=== PATIENT | male | born 1945 | race Caucasian/White ===

== ENCOUNTER 2017-01-31 10:53 | Day surgery (SDC) | payer MEDICARE, OTHER ==
[2017-01-24 16:10] LABS: BASOPHILS 0.4 %; BASOPHILS ABSOLUTE 0.04 10/3/uL (0.0-0.16); EOSINOPHILS 0.6 %; EOSINOPHILS ABSOLUTE 0.05 10/3/uL (0.0-0.53); HEMATOCRIT 44.3 % (40.0-51.0); HEMOGLOBIN 14.4 g/dL (13.6-17.8); IMMATURE GRANULOCYTES 0.3 %; IMMATURE GRANULOCYTES ABSOLUTE 0.03 10/3/uL (0.0-0.11); LYMPHOCYTES 10.7 %; LYMPHOCYTES ABSOLUTE 0.97 10/3/uL (0.67-4.30); MEAN CORPUS HGB CONC 32.5 g/dL (32.0-36.0); MEAN CORPUSCULAR HEMOGLOB 31.1 pg (26.0-34.0); MEAN PLATELET VOLUME 9.8 fL (9.2-13.0); MONOCYTES 8.2 %; MONOCYTES ABSOLUTE 0.74 10/3/uL (0.21-1.20); NEUTROPHILS 79.8 %; RBC DISTRIBUTION WIDTH 13.4 % (12.0-16.0); RED CELL COUNT 4.63 10/6/uL (4.7-6.1)
[2017-01-24 16:19] LABS: MANUAL DIFF NO %; MEAN CORPUSCULAR VOLUME 95.7 fL (80-100); PLATELET COUNT 257 10/3/uL (150-400)
[2017-01-24 16:27] LABS: A/G RATIO 1.1 (0.7-1.9); ALBUMIN 3.8 G/DL (3.5-5.0); ALKALINE PHOSPHATASE 89 U/L (45-117); BUN (BLOOD UREA NITROGEN) 16 MG/DL (6-23); CALCIUM, SERUM 9.6 MG/DL (8.5-10.4); CHLORIDE, SERUM 105 MMOL/L (96-112); CO2 (CARBON DIOXIDE) 31 MMOL/L (24-34); CREATININE 0.84 MG/DL (0.70-1.30); GFR AFRICAN AMERICAN 101 ML/MIN (>=60); GFR NON AFRICAN AMERICAN 87 ML/MIN (>=60); GLOBULIN 3.4 G/DL (2.5-4.1); GLUCOSE, SERUM 79 MG/DL (60-99); POTASSIUM, SERUM 5.7 MMOL/L (3.5-5.3); SGOT(AST) 23 U/L (5-40); SGPT(ALT) 22 U/L (5-65); SODIUM, SERUM 141 MMOL/L (135-148); TOTAL BILIRUBIN 0.4 MG/DL (0-1.2); TOTAL PROTEIN 7.2 G/DL (6.0-8.5)
--- NOTE | ~2017-01-31 | PREOPHP ---
PreOp History and Physical [address] [address] NAME: KARLOS VAIL : 43 STATUS : PRE [facility] [place] PAT#: [id number] AGE: 71 ADM/REG DATE : MR#: [id number] REPORT SERV DATE: 01/31/17 DICTATED BY: JOHANNA BURRIS III DATE: 01/16/17 REPORT STATUS : Draft TRANSCRIBED BY: MODNasir DATE: 01/16/17 HISTORY OF PRESENT ILLNESS: This 71-year-old male comes to the operating room for laparoscopic cholecystectomy, possible laparotomy, for symptomatic cholelithiasis and cholecystitis. The patient complains of intermittent episodes of epigastric abdominal pain. This is also associated with bloating and nausea after eating. The pain is worse after eating. The patient has gallstones and was felt to have symptomatic cholelithiasis and cholecystitis. He comes to the operating room now for laparoscopic cholecystectomy, possible laparotomy. PAST MEDICAL HISTORY: 1. History of cerebrovascular accident in the past. 2. History of prostate cancer. PAST SURGICAL HISTORY: Includes mitral valve repair, prostatectomy, and right inguinal hernia repair. FAMILY HISTORY: Remarkable for heart disease. SOCIAL HISTORY: No history of tobacco or alcohol use. ALLERGIES: NONE. MEDICATIONS: Metoprolol, Lipitor, aspirin, Plavix, Lupron, and vitamins. REVIEW OF SYSTEMS: The patient's 14-point review of systems is otherwise unremarkable. He does have a recurrent right inguinal hernia which is symptomatic. PHYSICAL EXAMINATION: GENERAL: This is a male, in no acute distress. He is alert and oriented x3. VITAL SIGNS: Blood pressure 145/77, temperature 97.9, pulse 80. HEENT: Unremarkable. Cranial nerves II through XII were normal. LUNGS: Clear. CARDIAC: Normal. ABDOMEN: Soft. Nontender. EXTREMITIES: Normal. LABORATORY DATA: Gallbladder ultrasound confirms gallstones. It should be noted that the patient has a moderate size right inguinal hernia which is reducible. ASSESSMENT: 1. A 71-year-old male with symptomatic cholelithiasis and cholecystitis. 2. History of cerebrovascular accident. 3. History of prostate cancer. 4. History of mitral valve repair. PreOp History and Physical [address] [address] NAME: KARLOS VAIL : 43 STATUS : PRE [facility]#: [id number] AGE: 71 ADM/REG DATE : MR#: [id number] REPORT SERV DATE: 01/31/17 DICTATED BY: JOHANNA BURRIS III DATE: 01/16/17 REPORT STATUS : Draft TRANSCRIBED BY: KALI DATE: 01/16/17 PLAN: The patient comes to the operating room now for laparoscopic cholecystectomy, possible laparotomy. This procedure, the risks, benefits, and alternatives, including but not limited to the risk for bleeding, infection, common bile duct injury, bile leak, retained common bile stone, enterotomy, or injury to any abdominal structure, the definite possible need for laparotomy, possible persistence of his symptoms unrelieved by surgery. The possibility of postoperative diarrhea or incisional hernia, and unforeseen complications including deep venous thrombosis, pulmonary embolus, myocardial infarction, stroke, pneumonia, and , have been fully and completely explained to the patient prior to surgery. The fact that this is a major operation with risk for major morbidity and mortality and no guarantee for relief of his symptoms has been explained to him. The expected length of recovery with both open and laparoscopic procedures has been explained. The fact that he will be at increased risk for thromboembolic complications while his Plavix is held perioperatively has been explained as well as increased risk of bleeding because of the use of this medication. The patient's questions have been answered. He understands the risks and agrees to surgery as planned. It should be noted that the patient has a right inguinal hernia which will be repaired at a separate setting. ALENA/KALI Johanna Burris III, M.D. / [id number]
--- NOTE | ~2017-01-31 | OP ---
Record Of Operation [facility] [address] [place]. [address] NAME: KARLOS VAIL : 43 STATUS : [facility]#: [id number] AGE: 71 ADM/REG DATE : 01/31/17 MR#: [id number] REPORT SERV DATE: 02/01/17 DICTATED BY: JOHANNA BURRIS III DATE: 02/01/17 REPORT STATUS : Draft TRANSCRIBED BY: MODNasir DATE: 02/01/17 DATE OF PROCEDURE: 01/31/2017 POSTOPERATIVE DIAGNOSIS: Symptomatic cholelithiasis and cholecystitis. POSTOPERATIVE DIAGNOSIS: Symptomatic cholelithiasis and cholecystitis. PROCEDURE: Laparoscopic cholecystectomy. SURGEON: Johanna Burris M.D. ANESTHESIA: General with intubation. COMPLICATIONS: None. ESTIMATED BLOOD LOSS: Less than 30 mL. SPECIMENS: Gallbladder. DRAINS: None. LAP AND SPONGE COUNT: Correct x3. BRIEF HISTORY: This 71-year-old male, presented with evidence for symptomatic cholelithiasis and cholecystitis. It was felt that laparoscopic cholecystectomy, possible laparotomy, was indicated. On this procedure, the risks, benefits, and alternatives, including but not limited to the risk for bleeding, infection, common bile duct injury, bile leak, retained common bile stone, enterotomy, or injury to any abdominal structure, the definite possible need for laparotomy, possible persistence of his symptoms unrelieved by surgery, positive postoperative diarrhea or incisional hernia, and unforeseen complications including deep venous thrombosis, pulmonary embolus, myocardial infarction, stroke, pneumonia, and , were fully and completely explained to the patient and family prior to surgery. The fact this was a major operation with risk for major morbidity and mortality and no guarantee for relief of his symptoms was explained to them. The expected length of recovery with open laparoscopic procedures was explained. The fact that he has increased risk for thromboembolic complications while his aspirin and Plavix were held perioperatively, as well as with increased risk of bleeding because of use of these medications was explained. The patient and family had questions, which were answered. They fully understood the risks and agreed to surgery as planned. FINDINGS: The patient had evidence for severely diseased the gallbladder. The gallbladder tovar were thickened and inflamed. The gallbladder was distended and enlarged, and there were adhesions between the gallbladder and omentum consistent with cholecystitis. The liver and remainder of the upper abdomen were otherwise unremarkable as far as we could determine through the laparoscope. Record Of Operation [facility] [address] [place]. [address] NAME: KARLOS VAIL : 43 STATUS : [facility] PAT#: [id number] AGE: 71 ADM/REG DATE : 01/31/17 MR#: [id number] REPORT SERV DATE: 02/01/17 DICTATED BY: JOHANNA BURRIS III DATE: 02/01/17 REPORT STATUS : Draft TRANSCRIBED BY: KALI DATE: 02/01/17 PROCEDURE IN DETAIL: After being appropriately identified and after discussing the risks of surgery with the patient and his family in the preoperative area, the patient was taken to the operating room and placed in the supine position on the operating room table. General anesthesia was administered. He was intubated without difficulty. The abdomen was prepped and draped sterilely in the usual fashion. After an appropriate "time-out" per [facility] standards, a small transverse incision was made below the umbilicus. The skin and fascia on either side was elevated with towel clips. A Veress needle was placed through the incision into the peritoneal cavity. Correct position of the needle in the peritoneal cavity was confirmed by the hanging drop test. The abdominal cavity was then insufflated to about 13 mmHg with carbon dioxide. Correct position of air in the peritoneal cavity was confirmed by palpation. The Veress needle was removed and replaced with 10-mm trocar. The laparoscope was placed through this. The patient was placed in the reverse Trendelenburg position and to his left. A second 10-mm trocar was placed just below the xiphoid process, to the right of the falciform ligament, under direct vision with the laparoscope. Two 5-mm trocars were placed along the right subcostal margin, one in the midaxillary line, the other in the midclavicular line. These were also placed under direct vision with the laparoscope. The upper abdomen was inspected. The gallbladder appeared to be chronically diseased. The gallbladder tovar were thickened and inflamed consistent chronic cholecystitis. The liver and remainder of the upper abdomen were otherwise unremarkable as far as we could determine through the laparoscope. The appropriate instruments were placed through the trocars. The gallbladder was grasped and the infundibulum of the gallbladder was retracted laterally and inferiorly so as to expose the triangle of Calot. Using careful sharp and blunt dissection, the cystic duct was carefully and meticulously defined proximally and distally. The cystic duct was fairly long. The junction of the cystic duct with the common bile duct was appreciated, but not skeletonized. The cystic artery was similarly defined proximally and distally. The fibrous and fatty tissue between these structures was divided so as to clearly identify the critical angle. Once these structures were clearly defined, the cystic duct was clipped using two clips on the common bile duct side and one on the gallbladder side, all placed as close to the gallbladder as possible, taking care not encroach upon or injure the common bile duct in any way. The cystic duct was then divided between these clips as close to the gallbladder as possible. We elected not to perform a cholangiogram because there was no preoperative or intraoperative evidence for biliary dilatation and because the patient's preoperative liver enzymes were normal and because his biliary anatomy was clearly defined. Again, the structure was not divided or clipped until the critical angle and triangle of Calot had been clearly identified. The cystic artery was then similarly clipped and divided as close to the gallbladder as possible. Using the spatula and the cautery, the gallbladder was carefully dissected from the liver bed. This went very well. Before the gallbladder was completely removed, the gallbladder bed and portal areas were irrigated numerous times with saline. The saline was aspirated dry. This process was repeated several times until hemostasis was meticulously and thoroughly assured in all areas. It was also assured that the clips in the portal areas were in good position and there was no extravasation of bile from any accessory bile duct. Once this was assured, the gallbladder was completely dissected away from the liver and placed in the Endopouch. The liver bed was elevated, irrigated, and inspected for meticulous and thorough hemostasis and for absence of any biliary extravasation and to be certain that the clips were in good position. Once this was assured, the gallbladder and Endopouch were brought out through the infraumbilical incision and placed in the laparoscope through the subxiphoid port. The Record Of Operation [facility] [address] [facility] [place]. [address] NAME: KARLOS VAIL : 43 STATUS : [facility]#: [id number] AGE: 71 ADM/REG DATE : 01/31/17 MR#: [id number] REPORT SERV DATE: 02/01/17 DICTATED BY: FATUMA PLATAJOHANNAT DATE: 02/01/17 REPORT STATUS : Draft TRANSCRIBED BY: KALI DATE: 02/01/17 fascia of the infraumbilical incision was closed with 0 Vicryl suture. The lateral two trocars were removed. These two lower trocar sites were inspected on the underside for hemostasis with the laparoscope. Once this was assured, the subxiphoid trocar was removed under direct vision with the laparoscope to assure hemostasis in this incision. The air was removed from the peritoneal cavity through this incision. The skin incisions were inspected for hemostasis, they were closed with running subcuticular 4-0 Monocryl stitches. They were injected with one-half percent Marcaine. Dressings were applied. Anesthesia was reversed and the patient was taken to the recovery room in stable condition. The patient tolerated the procedure well. His family was informed of the results of surgery. The patient was discharged later when he was stable, comfortable and tolerating liquids and able to void and ambulate. His family was advised that he should remain on a liquid diet today and advance this as tolerated to a regular diet tomorrow. He should keep wounds clean and dry for 48 hours and that he should not drive for 3-4 days after surgery or while using narcotics or Phenergan. They were advised that he should resume his usual medications. He was given a prescription for a narcotic and Phenergan, which he was advised to not take while driving. ADDENDUM: It should be noted that Surgicel was placed in the gallbladder bed to help with hemostasis. It also should be noted that the patient was advised that he should resume his Plavix and aspirin the day after surgery. ALENA/KALI Johanna Burris III, M.D. / [id number] CC: Humble Lambert III, M.D.
[~2017-01-31 10:53] MED LIST: ALLEGRA180 PO; ASA5GR PO; ASAB PO; BEN25 PO; CLARITD PO; CO Q-1050 MG PO; LIPITOR10 PO; PLAVIX PO; TOPXL25 PO
[2017-01-31 18:00] LABS: HEMOGLOBIN 13.4 g/dL (13.6-17.8)
[2017-01-31 18:01] LABS: HEMATOCRIT 39.6 % (40.0-51.0)
[2017-07-07] MEDS ORDERED: LUPRON DEPOT22.5 MG IM (08:48)
[2017-07-07] MEDS ORDERED: VITA D PO (08:50)
[2017-07-07] MEDS ORDERED: CALCIUM PO (08:50)
[2017-07-07] MEDS ORDERED: VITAMIN D31000 UNIT PO (08:51)
[2017-07-09] MEDS ORDERED: PERCOCET 7.5/321 TAB PO (12:32)
== END 2017-01-31 19:55 | disposition home or self-care (01) ==
LOC: SDC 10:53
PROVIDERS: Surgery
PROC: 0FT44ZZ Resection of Gallbladder, Percutaneous Endoscopic Approach (ICD-10-PCS; principal; 2017-01-31 12:30)
DX: K80.10 Calculus of gallbladder with chronic cholecystitis without obstruction (principal); M19.90 Unspecified osteoarthritis, unspecified site; Z86.73 Personal history of transient ischemic attack (TIA), and cerebral infarction without residual deficits; Z90.49 Acquired absence of other specified parts of digestive tract; Z85.46 Personal history of malignant neoplasm of prostate; Z98.890 Other specified postprocedural states; Z79.82 Long term (current) use of aspirin; Z79.02 Long term (current) use of antithrombotics/antiplatelets; Z79.899 Other long term (current) drug therapy
CPT/HCPCS: 36415; 71020; 80053; 84132; 85014; 85018; 85025; 88304; 93005; A9270-GY; J0690; J1170; J2250; J2405; J2710; J3010

== ENCOUNTER 2017-02-03 13:20 | Observation (INO) | payer MEDICARE, OTHER ==
--- NOTE | ~2017-02-03 | HP ---
History And Physical [place] [id number] [facility] [place]. [address] NAME: KARLOS VAIL : 43 STATUS : ADM IN [facility]#: [id number] AGE: 71 ADM/REG DATE : 02/03/17 MR#: [id number] REPORT SERV DATE: 02/04/17 DICTATED BY: JOHANNA BURRIS III DATE: 02/04/17 REPORT STATUS : Draft TRANSCRIBED BY: MODL DATE: 02/04/17 DATE OF ADMISSION: 02/03/2017 HISTORY OF PRESENT ILLNESS: This 71-year-old male was admitted to the hospital emergently from my office with evidence for acute anemia associated with hypotension. The patient is status post laparoscopic cholecystectomy which was performed 3 days prior to admission, on 01/31/2017. The patient's postoperative course was uneventful. The patient is on aspirin and Plavix chronically. This is for previous suspected transient ischemic attack. The patient states that he has severe bruising and easy bruising related to these medications. He states that he apparently has a family history for genetic bleeding disorder in that his son and granddaughter had spontaneous bleeding. This disorder is apparently being evaluated at [facility] in [place]. The patient states that after surgery he did well. The first day after surgery he was doing well with no problems. He did not start his aspirin and Plavix until the following day, the second day after surgery. Following this, he developed bruising over his right lateral abdominal wall and became progressively weak. The patient had been advised to resume his Plavix and aspirin 24 hours after surgery. He did not do so until again the second day after surgery. The patient has had episodes of bleeding in the past. After prostate biopsy four years ago, the patient resumed his aspirin and required emergent hospitalization for bleeding. He also has spontaneous bleeding in his back several years ago requiring emergent hospitalization and an intensive care unit observation. The patient began feeling very weak the second day after surgery, after his Plavix and aspirin were resumed. He took his blood pressure at home and was noted to be low, 90/50. He noted spontaneous onset of bruising over his right lateral abdominal wall. The patient presented to our office on the day of admission and was found to be very pale and dizzy with evidence of orthostatic . It was felt that emergent admission to the hospital was indicated. The patient has had no nausea or vomiting. He has had no abdominal pain. PAST MEDICAL HISTORY: 1. 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 2. History of prostate cancer with bleeding after prostate biopsy. PAST SURGICAL HISTORY: Includes mitral valve repair, prostatectomy, right inguinal hernia repair. FAMILY HISTORY: Positive for CVA and cardiac disease and an apparent bleeding disorder. History And Physical [address] [address] NAME: KARLOS VAIL : 43 STATUS : ADM IN [facility]#: [id number] AGE: 71 ADM/REG DATE : 02/03/17 MR#: [id number] REPORT SERV DATE: 02/04/17 DICTATED BY: JOHANNA BURRIS III DATE: 02/04/17 REPORT STATUS : Draft TRANSCRIBED BY: KALI DATE: 02/04/17 SOCIAL HISTORY: The patient is . He is retired. He has no history of tobacco or alcohol use. MEDICATIONS: Aspirin, Plavix, metoprolol, Lipitor, Lupron, vitamins, vitamin D. ALLERGIES: NONE. PHYSICAL EXAMINATION: GENERAL: This is a male who appears weak and very pale. VITAL SIGNS: Blood pressure 100/35, pulse 45, temp 97.5. HEENT: Otherwise unremarkable. Cranial nerves II through XII normal. LUNGS: Clear. CARDIAC: Normal. ABDOMEN: Soft with a large area of ecchymosis over the right lateral abdominal wall. EXTREMITIES: Normal. LABORATORY: Hematocrit 24. This is a marked change from his preoperative hematocrit which was over 30. ASSESSMENT: 1. 71-year-old male with symptomatic acute anemia, related to the resumption of Plavix and aspirin 48 hours after surgery, with abdominal wall bleeding and possible intraabdominal bleeding. 2. 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 3. History of mitral valve repair. PLAN: The patient will be admitted to the hospital emergently and transfuse based on the presence of severe symptomatic anemia with hypotension. We will request serial hematocrits as well as CT scan of the abdomen and pelvis. I have also requested platelets to reverse the platelet . At this time, the patient does not appear to have indications of need for acute surgical intervention. This plan has been explained to the patient. His questions have been answered. He understands and agrees to this as planned. RHJ/MODL Johanna Burris III, M.D. / [id number] CC: Humble Lambert III, M.D.
[2017-02-03 12:24] LABS: MEAN CORPUSCULAR HEMOGLOB 31.9 pg (26.0-34.0); MEAN CORPUSCULAR VOLUME 93.4 fL (80-100); MEAN PLATELET VOLUME 9.3 fL (9.2-13.0); PLATELET COUNT 231 10/3/uL (150-400); RBC DISTRIBUTION WIDTH 14.2 % (12.0-16.0); WHITE BLOOD CELLS 10.1 10/3/uL (4.5-10.5)
[2017-02-03 12:25] LABS: HEMOGLOBIN 8.2 g/dL (13.6-17.8); MEAN CORPUS HGB CONC 34.2 g/dL (32.0-36.0); RED CELL COUNT 2.57 10/6/uL (4.7-6.1)
[2017-02-03 15:47] LABS: ALBUMIN 3.6 G/DL (3.5-5.0); ALKALINE PHOSPHATASE 88 U/L (45-117); CALCIUM, SERUM 8.8 MG/DL (8.5-10.4); CHLORIDE, SERUM 102 MMOL/L (96-112); CO2 (CARBON DIOXIDE) 30 MMOL/L (24-34); CREATININE 0.76 MG/DL (0.70-1.30); GFR AFRICAN AMERICAN 106 ML/MIN (>=60); GFR NON AFRICAN AMERICAN 91 ML/MIN (>=60); GLOBULIN 3.5 G/DL (2.5-4.1); PHOSPHORUS, SERUM 1.9 MG/DL (2.5-4.5); SGOT(AST) 25 U/L (5-40); SGPT(ALT) 24 U/L (5-65); SODIUM, SERUM 138 MMOL/L (135-148); TOTAL BILIRUBIN 0.6 MG/DL (0-1.2); TOTAL PROTEIN 7.1 G/DL (6.0-8.5)
[2017-02-03 15:48] LABS: BUN (BLOOD UREA NITROGEN) 20 MG/DL (6-23); GLUCOSE, SERUM 118 MG/DL (60-99)
[2017-02-03 19:36] LABS: HEMOGLOBIN 9.2 g/dL (13.6-17.8)
[2017-02-03 19:37] LABS: HEMATOCRIT 27.3 % (40.0-51.0)
[2017-02-04 00:45] LABS: HEMATOCRIT 27.1 % (40.0-51.0); HEMOGLOBIN 9.4 g/dL (13.6-17.8)
[2017-02-04 07:01] LABS: BASOPHILS 0.3 %; BASOPHILS ABSOLUTE 0.03 10/3/uL (0.0-0.16); EOSINOPHILS 0.7 %; EOSINOPHILS ABSOLUTE 0.06 10/3/uL (0.0-0.53); HEMATOCRIT 27.2 % (40.0-51.0); HEMOGLOBIN 9.4 g/dL (13.6-17.8); IMMATURE GRANULOCYTES 0.2 %; IMMATURE GRANULOCYTES ABSOLUTE 0.02 10/3/uL (0.0-0.11); LYMPHOCYTES ABSOLUTE 1.05 10/3/uL (0.67-4.30); MEAN CORPUS HGB CONC 34.6 g/dL (32.0-36.0); MEAN CORPUSCULAR HEMOGLOB 31.3 pg (26.0-34.0); MEAN CORPUSCULAR VOLUME 90.7 fL (80-100); MEAN PLATELET VOLUME 9.1 fL (9.2-13.0); MONOCYTES 12.3 %; MONOCYTES ABSOLUTE 1.07 10/3/uL (0.21-1.20); NEUTROPHILS 74.5 %; PLATELET COUNT 209 10/3/uL (150-400); RBC DISTRIBUTION WIDTH 15.2 % (12.0-16.0); WHITE BLOOD CELLS 8.7 10/3/uL (4.5-10.5)
[2017-02-04 07:04] LABS: MANUAL DIFF NO %
[2017-02-04 11:56] LABS: HEMOGLOBIN 10.3 g/dL (13.6-17.8)
[2017-02-04 15:04] LABS: HEMATOCRIT 28.7 % (40.0-51.0); HEMOGLOBIN 9.9 g/dL (13.6-17.8)
[2017-02-04 19:11] LABS: HEMOGLOBIN 10.6 g/dL (13.6-17.8)
[2017-02-04 19:15] LABS: HEMATOCRIT 31.6 % (40.0-51.0)
[2017-02-05 01:30] LABS: HEMATOCRIT 29.1 % (40.0-51.0); HEMOGLOBIN 9.7 g/dL (13.6-17.8)
[2017-02-05 08:06] LABS: HEMATOCRIT 31.1 % (40.0-51.0); HEMOGLOBIN 10.3 g/dL (13.6-17.8)
[2017-07-07] MEDS ORDERED: LUPRON DEPOT22.5 MG IM (08:48)
[2017-07-07] MEDS ORDERED: CALCIUM PO (08:50)
[2017-07-07] MEDS ORDERED: VITA D PO (08:50)
[2017-07-07] MEDS ORDERED: VITAMIN D31000 UNIT PO (08:51)
[2017-07-09] MEDS ORDERED: PERCOCET 7.5/321 TAB PO (12:32)
== END 2017-02-05 15:00 | disposition home or self-care (01) ==
LOC: 4SO 13:20
PROVIDERS: Surgery
DX: D64.9 Anemia, unspecified (principal); M19.90 Unspecified osteoarthritis, unspecified site; Z90.49 Acquired absence of other specified parts of digestive tract; Z79.82 Long term (current) use of aspirin; Z79.02 Long term (current) use of antithrombotics/antiplatelets; Z86.73 Personal history of transient ischemic attack (TIA), and cerebral infarction without residual deficits; Z98.890 Other specified postprocedural states; Z79.899 Other long term (current) drug therapy
CPT/HCPCS: 36415; 36430; 74176; 80053; 83735; 84100; 85014; 85018; 85025; 85027; 86850; 86900; 86901; 86920; A9270-GY; G0378; P9016; P9035